=== PATIENT | male | born 1940 | race Caucasian/White ===

== ENCOUNTER → 2023-10-23 | Outpatient (CLI) | payer OTHER ==
[~2023-10-23] MED LIST: Armour Thyroid15 MG PO; HYDCHL25; MAGCIT300 PO; MONT10T; NASACORT10.8 ML; Prinivil10 MG PO; TESTOSTERO200 MG/1 M; [UNRECOGNIZED DRUG - OTHER] PO
== END ==
LOC: PLD 07:27 → LAB SHORT 07:27
DX: C44.319 Basal cell carcinoma of skin of other parts of face (principal)
CPT/HCPCS: 88305

== ENCOUNTER 2024-10-25 12:24 | Inpatient (IN) | payer OTHER ==
[~2024-10-25] VITALS: Ht 172.7 cm; Wt 73.5 kg
[2024-10-25] VITALS (19 sets, daily range): BP systolic 109–159; BP diastolic 68–111
[2024-10-25] MEDS ORDERED: Nitroglycerin Patch 0.4 MG / HR TOP ONE (12:50)
[2024-10-25] MEDS ORDERED: Aspirin 325 MG Tab PO ONE (12:50)
[2024-10-25 13:01] LABS: BASOPHILS ABSOLUTE AUTO 0.05 K/mm3 (0.00-0.23); BASOPHILS PERCENT AUTO 1 % (0-2); EOSINOPHILS ABSOLUTE AUTO 0.06 K/mm3 (0.00-0.68); EOSINOPHILS PERCENT AUTO 1 % (0-6); Hematocrit 46.9 % (37.0-53.0); Hemoglobin 16.3 g/dL (13.5-17.5); IMMATURE GRAN ABSOLUTE AUTO 0.02 K/mm3 (0.00-0.10); IMMATURE GRAN PERCENT AUTO 0 % (0-1); LYMPHOCYTES ABSOLUTE AUTO 0.87 K/mm3 (0.84-5.20); LYMPHOCYTES PERCENT AUTO 11 % (21-46); MONOCYTES ABSOLUTE AUTO 0.58 K/mm3 (0.16-1.47); MONOCYTES PERCENT AUTO 7 % (4-13); Mean Corpuscular HGB 30.5 pg (26.0-34.0); Mean Corpuscular HGB Conc 34.8 g/dL (31.5-36.5); Mean Corpuscular Volume 88 fL (80-100); Mean Platelet Volume 9.5 fL (9.1-12.4); NEUTROPHILS ABSOLUTE AUTO 6.62 K/mm3 (1.96-9.15); NEUTROPHILS PERCENT AUTO 81 % (41-73); Platelet Count 271 K/mm3 (150-400); RDW Coefficient Variation 12.7 % (11.7-14.2); Red Blood Cell Count 5.35 M/mm3 (4.30-5.90)
[2024-10-25 13:17] LABS: Albumin, Blood 3.8 g/dL (3.4-5.0); Bilirubin, Total 1.1 mg/dL (0.1-1.0); Bun/Creatinine Ratio 20.6 (12.0-20.0); Calcium, Blood 9.5 mg/dL (8.5-10.1); Creatinine, Blood 1.02 mg/dL (0.60-1.20); Globulin, Blood 3.7 g/dL (2.2-4.0); Potassium, Blood 3.3 mmol/L (3.5-5.5); Total Protein, Blood 7.5 g/dL (6.4-8.2)
[2024-10-25] MEDS ORDERED: DONEPEZIL HCL10 M1 PO (13:21)
[2024-10-25] MEDS ORDERED: NS 250 ML IV ONE ×4 (13:32→16:48)
[2024-10-25] MEDS ORDERED: Nitroglycerin 2 MG/20 ML BTL ONE (13:32)
[2024-10-25] MEDS ORDERED: Heparin Sodium 1000 Units/ML 10ML MDV ONE ×3 (13:32→15:56)
[2024-10-25] MEDS ORDERED: NS 1,000 ML IV ONE ×2 (13:32→13:37)
[2024-10-25] MEDS ORDERED: Verapamil HCL 2.5 MG/ML 2ML Injection ONE (13:32)
[2024-10-25] MEDS ORDERED: FentaNYL Citrate 50 MCG/ML 2 ML Injection ONE ×3 (13:36→16:57)
[2024-10-25] MEDS ORDERED: Midazolam HCl 1MG / ML 2ML Vial ONE ×3 (13:37→16:57)
[2024-10-25] MEDS ORDERED: MethylPREDNISolone Sod Succ 125 MG Vial ONE (13:40)
[2024-10-25] MEDS ORDERED: DiphenhydrAMINE HCl 50 MG/ML 1ML Vial ONE (13:40)
[2024-10-25] MEDS ORDERED: Famotidine 10 MG/ML 2ML Vial IV STA (13:43)
[2024-10-25] MEDS ORDERED: Famotidine 10 MG/ML 2ML Vial ONE (13:44)
[2024-10-25] MEDS ORDERED: DiphenhydrAMINE HCl 50 MG/ML 1ML Vial IV STA (13:44)
[2024-10-25] MEDS ORDERED: MethylPREDNISolone Sod Succ 125 MG Vial IV STA (13:44)
[2024-10-25] MEDS ORDERED: Tirofiban HCL Monohydrate 3.75 MG/15 ML Vial ONE (13:55)
[2024-10-25] MEDS ORDERED: FLU VACC TS2024-25(6MOS UP)/PF 45 MCG/0.5 ML SYRINGE IM SCH (14:05)
--- NOTE | 2024-10-25 18:30 | NUR ---
VERBAL BEDSIDE REPORT GIVEN TO ICU 10 RN. ACCESS SITES REVIEWED. SITES C/D/I.
--- NOTE | 2024-10-25 18:51 | NUR ---
ADMISSION: Pt arrived to ICU 10 from tin can laborer at 1826. He arrived with right TR band in place with 11mls in place, no bleeding. Right groin site slightly firm which tin can laborer RN reports has been present; no bleeding or oozing present. Pt is alert and oriented x 4 with spouse at bedside. Report given to equipment lead RNAnn.
[2024-10-25] MEDS ORDERED: NS 1,000 ML IV SCH (19:05)
[2024-10-25] MEDS ORDERED: CITALOPRAM HBR10 MG (19:37)
[2024-10-25] MEDS ORDERED: FURO40 (19:37)
[2024-10-25] MEDS ORDERED: AMLODIPINE-OLM1 EACH (19:38)
--- NOTE | 2024-10-25 20:30 | NUR ---
UPDATE PATIENT'S R GROIN SITE HAS SMALL TRACING AMOUNT OF BLOOD UNDER TEGADERM. SITE SOFT NONTENDER AND NO NUMBNESS. PATIENT'S R RADIAL TR BAND IN PLACE WITH ARM BOARD. NO BLOOD, NUMBNESS, OR PAIN. 1 CC REMOVED AT 2022.
[2024-10-25] MEDS ORDERED: Ticagrelor 90 MG TABLET PO SCH (21:00)
[2024-10-25] MEDS ORDERED: Heparin Sodium,Porcine 5,000 UNIT/0.5 ML SDV SC ONE (21:45)
[2024-10-25] MEDS ORDERED: Ticagrelor 90 MG TABLET PO ONE (21:45)
--- NOTE | 2024-10-25 22:09 | NUR ---
UPDATE @2122 DEFLATED TR BAND 1CC SOFT, NO PAIN, NONTENDER, NO NUMBNESS AND NO PAIN.
--- NOTE | 2024-10-25 22:11 | NUR ---
UPDATE PATIENT'S HEAD ELVATED AFTER LAYING FLAT FOR 4 HOURS. RIGHT GROIN AREA SMALL AMOUNT OF BLOOD.
--- NOTE | 2024-10-25 22:52 | NUR ---
UPDATE RIGHT GROIN SMALL AMOUNT OF BLOOD UNDER TEGADERM, NO NUMBNESS, OR PAIN, SOFT TO THE TOUCH. RIGTH WRIST REMOVED 1CC. ARMBOARD IN PLACE, NO PAIN, NO NUMBNESS SOFT TO THE TOUCH.
--- NOTE | 2024-10-25 23:46 | NUR ---
UPDATE RIGTH GROIN SMALL BLOOD TURNED IN TO LARGE BLOOD, NURSE HELP PRESSURE FOR 15 MINUTES AND APPLIED 2X2 WITH NEW TEGADERM AFTER BLLEDING STOPPED. REMINDED PATIENT TO NOT BE MOVING RIGHT LEG AROUND AND NOT TRY TO SIT UP. RIGHT WRIST 1CC RMOVED NO PAIN, NUMBNESS, SOFT TO TOUCH AND ARM BOARD IN PLACE.
[2024-10-26] VITALS (47 sets, daily range): BP systolic 106–159; BP diastolic 58–110
[2024-10-26] MEDS ORDERED: LEVSOD100 (00:08)
--- NOTE | 2024-10-26 01:44 | NUR ---
UPDATE @ 1292 RIGHT RADIAL WRIST REMOVED 1 CC OUT OF TR BAND. SITE WAS DRY, NO PAIN, NO NUMBNESS, AND ARM BOARD IN PLACE. RIGHT GROIN DRY WITH 2X2 WITH TEGADERM IN PLACE, SMALL BRUISED FORMED NO PAIN, NO NUMBNESS, AND SOFT TO TOUCH.
[2024-10-26 03:43] LABS: BASOPHILS ABSOLUTE AUTO 0.02 K/mm3 (0.00-0.23); BASOPHILS PERCENT AUTO 0 % (0-2); EOSINOPHILS PERCENT AUTO 0 % (0-6); Hematocrit 37.4 % (37.0-53.0); Hemoglobin 13.1 g/dL (13.5-17.5); IMMATURE GRAN ABSOLUTE AUTO 0.06 K/mm3 (0.00-0.10); IMMATURE GRAN PERCENT AUTO 1 % (0-1); LYMPHOCYTES ABSOLUTE AUTO 0.43 K/mm3 (0.84-5.20); LYMPHOCYTES PERCENT AUTO 3 % (21-46); MONOCYTES ABSOLUTE AUTO 0.54 K/mm3 (0.16-1.47); MONOCYTES PERCENT AUTO 4 % (4-13); Mean Corpuscular HGB 30.7 pg (26.0-34.0); Mean Corpuscular Volume 88 fL (80-100); Mean Platelet Volume 9.7 fL (9.1-12.4); NEUTROPHILS ABSOLUTE AUTO 11.98 K/mm3 (1.96-9.15); NEUTROPHILS PERCENT AUTO 92 % (41-73); Platelet Count 266 K/mm3 (150-400); RDW Coefficient Variation 12.8 % (11.7-14.2); RDW Standard Deviation 40.8 fL (35.1-46.3); Red Blood Cell Count 4.27 M/mm3 (4.30-5.90); White Blood Cell Count 13.03 K/mm3 (4.00-11.30)
--- NOTE | 2024-10-26 04:07 | NUR ---
UPDATE @0230 REMOVED 2CC FROM RIGHT WRIST RADIAL TR BAND. SITE DRY, NO PAIN, NO NUMBNESS, AND ARM BOARD IN PLACE. RIGHT GROIN SITE DRY, BRUISED IN AREA, NO PAIN, NO NUMBNESS, AND SOFT TO THE TOUCH. PATIENT HAS BEEN SLEEPING AND NOT MOVING AROUND MUCH.
--- NOTE | 2024-10-26 04:09 | NUR ---
UPDATE @0330 REMOVED THE LAST 2 CC FROM TR BAND RIGHT RADIAL WRIST. TR BAND IN COMPLETLY DEFLATED LEFT IN PLACE. WILL CHECK AT 0430 TO REMOVE. SITE DRY, NO PAIN, NO NUMBNESS AND ARM BOARD IN PLACE. RIGHT GROIN AREA DRY, NO PAIN, AND NO NUMBNESS.
[2024-10-26 04:22] LABS: Albumin, Blood 2.8 g/dL (3.4-5.0); Bilirubin, Total 0.9 mg/dL (0.1-1.0); Bun/Creatinine Ratio 21.4 (12.0-20.0); Calcium, Blood 8.5 mg/dL (8.5-10.1); Creatinine, Blood 1.03 mg/dL (0.60-1.20); Globulin, Blood 2.9 g/dL (2.2-4.0); Magnesium, Blood 1.9 mg/dL (1.6-2.4); Potassium, Blood 3.5 mmol/L (3.5-5.5); Total Protein, Blood 5.7 g/dL (6.4-8.2)
--- NOTE | 2024-10-26 05:21 | NUR ---
UPDATE @0420 TR BAND REMOVED FROM RIGHT RADIAL WRIST. SITE WAS DRY , NO PAIN, NO NUMBNESS ON REMOVAL. SITE WAS WASHED WITH CHG AND 2X2 AND TEGADERM WAS PLACED AND ARM BOARD REAPPLIED. RIGHT GROIN SITE IS DRY, NO PAIN, BRUISE, NO NUMBNESS, AND 2X2 AND TEGADERM STILL INTACT.
--- NOTE | 2024-10-26 05:41 | NUR ---
SHIFT SUMMARY PATIENT A&OX4, SLEPT VERY LITTLE THROUGH SHIFT. AT BEDSIDE. BILATERAL LUNGS SOUNDS CLEAR. USING URINAL AT BEDSIDE. IV 20G R AC INFUSING NS 75ML/HR. PATIENT HAD 2 STENTS MID LAD, TRIED UNSUCESSFUL IN RIGHT RADIAL HAD TR BAND ON REMOVED AT 0420, SITE CLEAR WITH TEGADERM APPLIED. SBP 120'S, HR IN THE 70'S. SUCCESSFUL IN RIGHT FEMORAL SITE DID NEED PRESSURE APPLIED FOR 15 MINUTES, BLEEDING STOPPED NEW DRESSING APPLIED. SEE NURSES NOTES FOR MORE INFORMATION. CALL LIGHT WITHIN REACH. PATEINT AND WANT TO MAKE SURE PATIENT'S HOME MEDICATIONS ARE GIVEN TO HIM. NURSE TOLD THEM SHE WOULD LET DAY SHIFT NURSE KNOW.
[2024-10-26] MEDS ORDERED: Levothyroxine Sodium 0.1 MG Tab PO SCH (06:00)
[2024-10-26] MEDS ORDERED: Aspirin 81 MG Chew PO SCH (08:00)
[2024-10-26] MEDS ORDERED: Atorvastatin 40 MG Tab PO SCH (09:00)
[2024-10-26] MEDS ORDERED: Donepezil HCl 5 MG Tab PO SCH (21:00)
--- NOTE | 2024-10-26 21:20 | NUR ---
ASSUMPTION OF CARE: ASSUMED CARE OF PT AT 1900. PT ALERT AND ORIENTED X4. FOLLOWS DIRECTION AND MAKES NEEDS KNOWN. PT ON RA WITH SPO2 MID TO HIGH 90'S. DENIES SOB. LUNGS CLEAR. BLANKET WASHER IN PLACE, SR WITH HR 90'S. INCREASES WITH ACTIVITY. SBP 140'S. DENIES CP/PRESSURE. IV FLUID INFUSING AT 75 ML/HR X1 BAG. CURRENTLY DONE AND SALINE LOCKED. PIV TO RAC PATENT. PT ABLE TO USE URINAL IND. VOIDING YELLOW URINE. GROIN SITE SHOWS NO NEW SIGNS OF BLEEDING OR NO NEW BRUISING. PT TOLERATING PO INTAKE. BED LOW AND LOCKED. CALL LIGHT IN REACH. PT AT THE BEDSIDE.
[2024-10-27] VITALS (33 sets, daily range): BP systolic 103–140; BP diastolic 55–115
--- NOTE | 2024-10-27 06:12 | NUR ---
SHIFT SUMMARY: NO ACUTE CHANGES OVERNIGHT. PT ABLE TO REST THIS SHIFT. ON RA WITH SPO2 MID TO HIGH 90'S. DENIES SOB. LUNGS CLEAR. IRON LAUNDER OPERATOR IN PLACE, SR WITH HR 60-70'S. TACHYCARDIC WITH ACTIVITY. DENIES CP/PRESSURE. SBP 130'S. GROIN SITE SHOWS NO NEW SIGNS OF HEMATOMA OR NEW BLEEDING. FIRM TO THE TOUCH. ABLE TO STAND AT THE BEDSIDE AND USE URINAL. NO BM THIS SHIFT. PIV TO RAC PATENT AND SALINE LOCKED. TOLERATING PO INTAKE. NO C/O N/V.
[2024-10-27] MEDS ORDERED: NS 1,000 ML IR SCH (08:30)
[2024-10-27 12:09] LABS: BASOPHILS ABSOLUTE AUTO 0.04 K/mm3 (0.00-0.23); BASOPHILS PERCENT AUTO 0 % (0-2); EOSINOPHILS ABSOLUTE AUTO 0.06 K/mm3 (0.00-0.68); EOSINOPHILS PERCENT AUTO 1 % (0-6); Hematocrit 34.7 % (37.0-53.0); Hemoglobin 12.2 g/dL (13.5-17.5); IMMATURE GRAN ABSOLUTE AUTO 0.04 K/mm3 (0.00-0.10); IMMATURE GRAN PERCENT AUTO 0 % (0-1); LYMPHOCYTES ABSOLUTE AUTO 0.89 K/mm3 (0.84-5.20); LYMPHOCYTES PERCENT AUTO 8 % (21-46); MONOCYTES ABSOLUTE AUTO 1.25 K/mm3 (0.16-1.47); MONOCYTES PERCENT AUTO 11 % (4-13); Mean Corpuscular HGB 31.1 pg (26.0-34.0); Mean Corpuscular HGB Conc 35.2 g/dL (31.5-36.5); Mean Corpuscular Volume 89 fL (80-100); Mean Platelet Volume 9.7 fL (9.1-12.4); NEUTROPHILS ABSOLUTE AUTO 9.48 K/mm3 (1.96-9.15); NEUTROPHILS PERCENT AUTO 81 % (41-73); Platelet Count 241 K/mm3 (150-400); RDW Coefficient Variation 13.1 % (11.7-14.2); Red Blood Cell Count 3.92 M/mm3 (4.30-5.90); White Blood Cell Count 11.76 K/mm3 (4.00-11.30)
[2024-10-27 12:38] LABS: Albumin, Blood 2.8 g/dL (3.4-5.0); Bilirubin, Total 0.9 mg/dL (0.1-1.0); Bun/Creatinine Ratio 21.5 (12.0-20.0); Calcium, Blood 8.4 mg/dL (8.5-10.1); Creatinine, Blood 1.07 mg/dL (0.60-1.20); Globulin, Blood 2.9 g/dL (2.2-4.0); Magnesium, Blood 1.9 mg/dL (1.6-2.4); Potassium, Blood 3.7 mmol/L (3.5-5.5); Total Protein, Blood 5.7 g/dL (6.4-8.2)
[2024-10-27] MEDS ORDERED: Metoprolol Succinate 25 MG TABCR PO SCH (18:30)
--- NOTE | 2024-10-27 18:51 | NUR ---
PATIENT DOWNGRADED TO PCU STATUS WITH TELE TSH, T3, & T4 LABS TO BE DRAWN IN THE AM EKG TO BE DONE IF PATIENT GETS TACHYCARDIAC PER CK MORNING EKG TO BE DONE PER CK PATIENT POSSIBLY DISCHARGED TOMORROW
[2024-10-27] MEDS ORDERED: NS 600 ML IR SCH (20:00)
[2024-10-28] VITALS (17 sets, daily range): BP systolic 100–159; BP diastolic 48–89
[2024-10-28 03:50] LABS: BASOPHILS ABSOLUTE AUTO 0.04 K/mm3 (0.00-0.23); BASOPHILS PERCENT AUTO 0 % (0-2); EOSINOPHILS ABSOLUTE AUTO 0.13 K/mm3 (0.00-0.68); EOSINOPHILS PERCENT AUTO 1 % (0-6); Hematocrit 32.7 % (37.0-53.0); Hemoglobin 11.3 g/dL (13.5-17.5); IMMATURE GRAN ABSOLUTE AUTO 0.04 K/mm3 (0.00-0.10); IMMATURE GRAN PERCENT AUTO 0 % (0-1); LYMPHOCYTES ABSOLUTE AUTO 1.13 K/mm3 (0.84-5.20); LYMPHOCYTES PERCENT AUTO 11 % (21-46); MONOCYTES ABSOLUTE AUTO 1.19 K/mm3 (0.16-1.47); MONOCYTES PERCENT AUTO 11 % (4-13); Mean Corpuscular HGB 30.7 pg (26.0-34.0); Mean Corpuscular HGB Conc 34.6 g/dL (31.5-36.5); Mean Corpuscular Volume 89 fL (80-100); Mean Platelet Volume 9.9 fL (9.1-12.4); NEUTROPHILS ABSOLUTE AUTO 8.05 K/mm3 (1.96-9.15); NEUTROPHILS PERCENT AUTO 76 % (41-73); Platelet Count 218 K/mm3 (150-400); RDW Coefficient Variation 12.8 % (11.7-14.2); RDW Standard Deviation 42.1 fL (35.1-46.3); Red Blood Cell Count 3.68 M/mm3 (4.30-5.90); White Blood Cell Count 10.58 K/mm3 (4.00-11.30)
[2024-10-28 04:28] LABS: Albumin, Blood 2.7 g/dL (3.4-5.0); Bilirubin, Total 0.9 mg/dL (0.1-1.0); Bun/Creatinine Ratio 18.1 (12.0-20.0); Calcium, Blood 8.5 mg/dL (8.5-10.1); Creatinine, Blood 1.05 mg/dL (0.60-1.20); Free Thyroxine 1.67 ng/dL (0.70-1.60); Globulin, Blood 2.6 g/dL (2.2-4.0); Magnesium, Blood 1.9 mg/dL (1.6-2.4); Potassium, Blood 3.8 mmol/L (3.5-5.5); Thyroid Stimulating Hormone 0.039 uIU/mL (0.360-4.800); Total Protein, Blood 5.3 g/dL (6.4-8.2); Triiodothyronine, Free 1.67 pg/mL (2.18-3.98)
--- NOTE | 2024-10-28 06:44 | NUR ---
SHIFT SUMMARY PT ALERT AND ORIENTED X4 FOLLOWS COMMANDS, ABLE TO MAKE NEEDS KNOWN, AFEBRILE,SR 60-80s, SBP 130-140s, ON RA, RESP EVEN AND UNLABORED, DENIES CP OR SOB, NOTED HEMATOMA TO RIGHT GROIN, AREA MARKED AND NO INCREASE IN BRUISING/BLEEDING NOTED, RIGHT RADIAL DRESSING DRY AND INTACT, EKG DONE THIS AM , PT HAD ONE EPISODE AT 0234 AND ONE AT 0505 OF UNSUSTAINED TAHYCARDIA 120-130s AFTER GETTING UP TO BATHROOM FOR BM, RESOLVED AFTER <5 MINUTES, BED ALARM ON SIDE RAILS UP X2 CALL LIGHT IN REACH
--- NOTE | 2024-10-28 18:26 | NUR ---
PATIENT DISCHARGED @1826 STATED DURING DISCHARGE "YOU AND THAT SARY DOCTOR DONT KNOW WHAT THE HELL YOU ARE FUCKING TALKING ABOUT" IN REGUARDS TO THE CHANGE IN LEVOTHYROXINE. SHE STATED "IT IS ONLT MESSED UP BECAUSE OF ME, I HAVE BEEN GIVING HIM 2 PILLS INSTEAD OF THE PRESCRIBED 1 PILL." I TOLD HER THAT IS NOT APPROPRIATE AND SHE SHOULD ALWAYS CONTACT A PHYSICIAN BEFORE DECIDING TO CHANGE HIS MEDICATIONS. PATIENT REFUSED TO BE TAKED OUT IN THE WHEELCHAIR SO PATIENT AMBULATED OUT TO THE CAR. WAS VERY LOUD, ABRASIVE, RUDE AND CUSSING AND WOULD NOT LISTEN TO THE DISCHARGE INSTRUCTIONS. SHE JUST WANTED TO ARGUE WITH ME ABOUT ALL THE NEW INSTRUCTIONS. DR. GOMEZ WAS TXTED AND NOTIFIED OF THE CONVERSATION HE WAS THE DR TO ORDER THE THYROID LABS AND WILL HAVE A FOLLOW UP VISIT WITH CKS OFFICE. THEY WILL CALL THE PATIENT TO SCHEDULE A FOLLOW UP VISIT IN 2-4 WEEKS
== END 2024-10-28 18:45 | disposition home or self-care (01) | DRG 322 ==
LOC: ER 12:24 → ICUE 13:22
PROVIDERS: Emergency Medicine; Family Medicine; ADMIT Family Medicine
PROC: B31H1ZZ Fluoroscopy of Right Upper Extremity Arteries using Low Osmolar Contrast (ICD-10-PCS; principal; 2024-10-25)
PROC: B41F1ZZ Fluoroscopy of Right Lower Extremity Arteries using Low Osmolar Contrast (ICD-10-PCS; principal; 2024-10-25)
PROC: B2111ZZ Fluoroscopy of Multiple Coronary Arteries using Low Osmolar Contrast (ICD-10-PCS; principal; 2024-10-25)
PROC: 4A023N7 Measurement of Cardiac Sampling and Pressure, Left Heart, Percutaneous Approach (ICD-10-PCS; principal; 2024-10-25)
PROC: 027035Z Dilation of Coronary Artery, One Artery with Two Drug-eluting Intraluminal Devices, Percutaneous Approach (ICD-10-PCS; principal; 2024-10-25)
PROC: B241ZZ3 Ultrasonography of Multiple Coronary Arteries, Intravascular (ICD-10-PCS; principal; 2024-10-25)
PROC: 02703ZZ Dilation of Coronary Artery, One Artery, Percutaneous Approach (ICD-10-PCS; principal; 2024-10-25)
DX: I21.09 ST elevation (STEMI) myocardial infarction involving other coronary artery of anterior wall (principal); I13.0 Hypertensive heart and chronic kidney disease with heart failure and stage 1 through stage 4 chronic kidney disease, or unspecified chronic kidney disease; I45.2 Bifascicular block; I50.30 Unspecified diastolic (congestive) heart failure; I47.19 Other supraventricular tachycardia; I48.92 Unspecified atrial flutter; J44.9 Chronic obstructive pulmonary disease, unspecified; N18.9 Chronic kidney disease, unspecified; E03.9 Hypothyroidism, unspecified; E78.5 Hyperlipidemia, unspecified; I48.91 Unspecified atrial fibrillation; I45.10 Unspecified right bundle-branch block; R25.1 Tremor, unspecified; I25.5 Ischemic cardiomyopathy; Z79.899 Other long term (current) drug therapy; Z79.890 Hormone replacement therapy; Z91.041 Radiographic dye allergy status; Z88.8 Allergy status to other drugs, medicaments and biological substances; Z98.52 Vasectomy status; Z87.891 Personal history of nicotine dependence
CPT/HCPCS: 36415; 71045; 76937; 80053; 83036; 83690; 83735; 83880; 84100; 84439; 84443; 84481; 84484; 85025; 85347; 92920; 92978; 92979; 93005; 93010; 93306; 93454; 96374; 96375; 99152; 99153; 99285-25; A9270; C1725; C1753; C1760; C1769; C1874; C1887; C1894; C8929; C9600; C9606; J1200; J1644; J2250; J2919; J3010; J3246; J7030; J7050; Q9957; Q9967